=== PATIENT | male | born 1970 | race Caucasian/White ===

== ENCOUNTER 2017-02-07 12:10 | Emergency (ER) | payer OTHER, BC ==
[~2017-02-07] VITALS: Ht 177.8 cm; Wt 107.8 kg
[~2017-02-07 12:10] MED LIST: DIOVAN HCT 11 TABLET PO; LIPITOR5 MG PO
[2017-02-07] MEDS ORDERED: INDOCIN50 MG PO (13:44)
[2017-02-07] MEDS ORDERED: VALIUM5 MG PO (13:44)
[2017-02-07] MEDS ORDERED: NORCO 7.5/321 TABLET PO (13:44)
[2017-02-07 13:56] VITALS: BP 163/93
== END 2017-02-07 13:56 | disposition home or self-care (01) ==
LOC: EME 12:10
DX: S16.1XXA Strain of muscle, fascia and tendon at neck level, initial encounter (principal); S29.012A Strain of muscle and tendon of back wall of thorax, initial encounter; V43.52XA Car driver injured in collision with other type car in traffic accident, initial encounter
CPT/HCPCS: 99281; 99284

== ENCOUNTER 2017-07-01 22:16 | Emergency (ER) | payer BC ==
[~2017-07-01] VITALS: Ht 180.3 cm; Wt 111.1 kg
[~2017-07-01 22:16] MED LIST changes: +INDOCIN50 MG PO; +NORCO 7.5/321 TABLET PO; +VALIUM5 MG PO
[2017-07-01] MEDS ORDERED: AUGMENTIN875 MG PO (23:41)
[2017-07-02 00:48] VITALS: BP 171/100
== END 2017-07-02 00:49 | disposition home or self-care (01) ==
LOC: RME 22:16 → EME 22:16 → RME 07-02 00:49
DX: S01.81XA Laceration without foreign body of other part of head, initial encounter (principal); S01.511A Laceration without foreign body of lip, initial encounter; W54.0XXA Bitten by dog, initial encounter; Z23 Encounter for immunization
CPT/HCPCS: 99281; 99284